=== PATIENT | female | born 2000 | race Caucasian/White ===

== ENCOUNTER → 2025-03-24 11:26 | Outpatient (REF) | payer BC, SELFPAY ==
[2025-03-24 12:01] LABS: % Basophils 0.4 % (0-2); % Eosinophils 1.6 % (0-6); % Lymphocytes 14.2 % (20.5-51.1); % Monocytes 4.1 % (1.7-9.3); % Neutrophils 78.7 % (42.2-75.2); Absolute Basophils 0.1 10^3/uL (0-0.2); Absolute Eosinophils 0.3 10^3/uL (0-0.7); Absolute Immature Granulocytes 0.2 10^3/uL (0-0.05); Absolute Lymphocytes 2.3 10^3/uL (1.2-3.4); Absolute Monocytes 0.7 10^3/uL (0.1-0.6); Hematocrit 35.9 % (37.0-47.0); Hemoglobin 10.7 g/dL (12.0-16.0); Mean Corp Hgb Conc. 29.8 g/dL (33.0-37.0); Mean Corpuscular Hgb 21.8 pg (27.0-31.0); Mean Corpuscular Volume 73.1 fL (81.0-99.0); Mean Platelet Volume 9.7 fL (7.4-10.4); Nucleated Red Blood Cells % 0 %; Platelet Count 407 10^3/uL (130-400); Red Blood Cell Count 4.91 10^6/uL (4.20-5.40); Red Cell Dist. Width 19.2 % (11.5-14.5); White Blood Cell Count 16.5 10^3/uL (4.8-10.8)
[2025-03-24 12:38] LABS: ALT (SGPT) 20 U/L (0-35); AST (SGOT) 18 U/L (14-36); Albumin 3.9 g/dl (3.5-5.0); Alkaline Phosphatase 64 U/L (38-126); Blood Urea Nitrogen 11 mg/dl (7-17); Calcium 9.5 mg/dl (8.4-10.2); Carbon Dioxide 26 mmol/L (22-30); Chloride 104 mmol/L (98-107); Glucose 98 mg/dl (70-99); HDL Cholesterol 34 mg/dl; LDL Cholesterol, Calculated 106 mg/dl; Potassium 4.5 mmol/L (3.5-5.1); Sodium 140 mmol/L (135-145); Total Bilirubin 0.6 mg/dl (0.2-1.3); Total Cholesterol 158 mg/dl (50-199); Total Protein 6.8 g/dl (6.3-8.2); Triglyceride 93 mg/dl (10-149); Very Low Density Lipoprotein 18 mg/dl (0-30); eGFR > 60.00
[2025-03-24 13:08] LABS: TSH Reflex To Free T4 1.49 uIU/ml (0.47-4.68)
== END ==
LOC: REG 11:26
PROVIDERS: ATTENDING PHYSICIAN Physician Assistant Medical
DX: Z13.1 Encounter for screening for diabetes mellitus (principal); Z13.220 Encounter for screening for lipoid disorders; Z13.0 Encounter for screening for diseases of the blood and blood-forming organs and certain disorders involving the immune mechanism; Z13.29 Encounter for screening for other suspected endocrine disorder; E66.1 Drug-induced obesity
CPT/HCPCS: 36415; 80053; 80061; 83036; 84443; 85025

== ENCOUNTER → 2025-04-27 15:28 | Outpatient (REF) | payer BC, SELFPAY ==
[2025-04-27 16:39] LABS: % Basophils 0.6 % (0-2); % Immature Granulocytes 0.6 % (0-0.5); % Lymphocytes 17.2 % (20.5-51.1); % Monocytes 4.4 % (1.7-9.3); % Neutrophils 74.2 % (42.2-75.2); Absolute Basophils 0.1 10^3/uL (0-0.2); Absolute Eosinophils 0.4 10^3/uL (0-0.7); Absolute Immature Granulocytes 0.1 10^3/uL (0-0.05); Absolute Lymphocytes 2.2 10^3/uL (1.2-3.4); Absolute Monocytes 0.6 10^3/uL (0.1-0.6); Absolute Neutrophils 9.4 10^3/uL (1.4-6.5); Hematocrit 36.4 % (37.0-47.0); Hemoglobin 10.9 g/dL (12.0-16.0); Mean Corp Hgb Conc. 29.9 g/dL (33.0-37.0); Mean Corpuscular Volume 73.4 fL (81.0-99.0); Mean Platelet Volume 10.2 fL (7.4-10.4); Nucleated Red Blood Cells % 0 %; Platelet Count 361 10^3/uL (130-400); Red Blood Cell Count 4.96 10^6/uL (4.20-5.40); Reticulocyte Count 2.1 % (0.4-2.8); White Blood Cell Count 12.7 10^3/uL (4.8-10.8)
[2025-04-27 16:50] LABS: Erythrocyte Sed Rate 36 mm/hour (0-20)
[2025-04-27 16:53] LABS: Iron 40 ug/dl (37-170)
[2025-04-27 17:03] LABS: Percent Saturation 12 % (20-50); Total Iron Binding Capacity 333 ug/dl (265-497)
[2025-04-27 17:12] LABS: Vitamin D, 25-OH*** 13.4 ng/mL (30-80)
[2025-04-27 17:30] LABS: Ferritin 32.7 ng/ml (6.24-137)
[2025-04-27 18:01] LABS: Folate 5.4 ng/ml (2.76-20); Vitamin B12 366 pg/ml (239-931)
[2025-04-28 12:15] LABS: tTG IgA Antibody 4.3 EU/ml (0-19); tTG IgG Antibody 41.6 EU/ml (0-19)
== END ==
LOC: REG 15:28
PROVIDERS: ATTENDING PHYSICIAN Registered Nurse; FAMILY PHYSICIAN Physician Assistant Medical
DX: D64.9 Anemia, unspecified (principal); R71.8 Other abnormality of red blood cells; D72.829 Elevated white blood cell count, unspecified
CPT/HCPCS: 36415; 81206; 81207; 81208; 82306; 82607; 82728; 82746; 82784; 83021; 83516; 83540; 83550; 85025; 85045; 85652; 86231

== ENCOUNTER → 2025-07-17 11:51 | Outpatient (REF) | payer BC, SELFPAY ==
[2025-07-17 12:54] LABS: Hematocrit 36.3 % (37.0-47.0); Hemoglobin 10.8 g/dL (12.0-16.0); Mean Corp Hgb Conc. 29.8 g/dL (33.0-37.0); Mean Corpuscular Volume 73.8 fL (81.0-99.0); Nucleated Red Blood Cells % 0 %; Platelet Count 386 10^3/uL (130-400); Red Cell Dist. Width 19.2 % (11.5-14.5)
[2025-07-17 13:14] LABS: Glycohemoglobin (HgbA1c) 5.3 % (4.0-5.6)
[2025-07-17 13:29] LABS: ALT (SGPT) 17 U/L (0-35); AST (SGOT) 15 U/L (14-36); Albumin 4.2 g/dl (3.5-5.0); Alkaline Phosphatase 63 U/L (38-126); Blood Urea Nitrogen 11 mg/dl (7-17); Calcium 9.5 mg/dl (8.4-10.2); Carbon Dioxide 26 mmol/L (22-30); Chloride 107 mmol/L (98-107); Glucose 87 mg/dl (70-99); HDL Cholesterol 34 mg/dl; LDL Cholesterol, Calculated 96 mg/dl; Magnesium 2.1 mg/dl (1.6-2.3); Potassium 4.5 mmol/L (3.5-5.1); Sodium 141 mmol/L (135-145); Total Protein 7.1 g/dl (6.3-8.2); Uric Acid 6.1 mg/dl (2.5-6.2); Very Low Density Lipoprotein 17 mg/dl (0-30); eGFR > 60.00
[2025-07-17 13:53] LABS: Vitamin D, 25-OH*** 27.9 ng/mL (30-80)
[2025-07-17 13:59] LABS: TSH 2.08 uIU/ml (0.47-4.68)
[2025-07-17 14:26] LABS: Vitamin B12 999 pg/ml (239-931)
[2025-07-20 01:45] LABS: Lipoprotein a (Lp a) <6 mg/dL (<=29)
== END ==
LOC: REG 11:51
PROVIDERS: ATTENDING PHYSICIAN Internal Medicine; FAMILY PHYSICIAN Physician Assistant Medical
DX: E55.9 Vitamin D deficiency, unspecified (principal); E78.00 Pure hypercholesterolemia, unspecified; R73.03 Prediabetes; D64.89 Other specified anemias; E88.810 Metabolic syndrome; E28.2 Polycystic ovarian syndrome; G47.33 Obstructive sleep apnea (adult) (pediatric); E66.01 Morbid (severe) obesity due to excess calories
CPT/HCPCS: 36415; 80053; 80061; 82306; 82607; 83036; 83695; 83735; 84439; 84443; 84550; 85025

== ENCOUNTER → 2025-09-07 10:55 | Outpatient (REF) | payer BC, SELFPAY | LOC: CLAB 10:55 | PROVIDERS: ATTENDING PHYSICIAN Emergency Medicine | DX: R39.9 Unspecified symptoms and signs involving the genitourinary system (principal) | CPT/HCPCS: 87086 ==

== ENCOUNTER → 2025-09-14 16:17 | Outpatient (REF) | payer BC, SELFPAY | LOC: CLAB 16:17 | PROVIDERS: ATTENDING PHYSICIAN Emergency Medicine | DX: R39.9 Unspecified symptoms and signs involving the genitourinary system (principal) | CPT/HCPCS: 81513; 87086; 87481; 87661 ==

== ENCOUNTER → 2025-10-09 10:05 | Outpatient (REF) | payer BC, SELFPAY ==
[2025-10-11 17:07] LABS: Bacterial Vaginosis by TMA Negative; Candida glabrata by TMA Negative; Candida species by TMA Negative; Trichomonas vaginalis by TMA Negative
== END ==
LOC: CLAB 10:05
PROVIDERS: ATTENDING PHYSICIAN Physician Assistant
DX: Z11.3 Encounter for screening for infections with a predominantly sexual mode of transmission (principal)
CPT/HCPCS: 81513; 87086; 87481; 87661

== ENCOUNTER → 2025-11-04 11:49 | Outpatient (REF) | payer BC, SELFPAY | LOC: CLAB 11:49 | PROVIDERS: ATTENDING PHYSICIAN Physician Assistant | DX: N89.8 Other specified noninflammatory disorders of vagina (principal) | CPT/HCPCS: 87086 ==